=== PATIENT | male | born 2000 | race Caucasian/White ===

== ENCOUNTER → 2020-05-12 | Emergency (ER) | payer OTHER ==
[~2020-05-12] VITALS: Ht 182.9 cm; Wt 77.1 kg
--- NOTE | ~2020-05-12 | EMS ---
[facility] [address] [place] [address] EMS Patient Care Report Name: DULCE HAINES Room: PRE ER M.R.#: [id number] Admission: Attend Phys: Discharge: Date of : 00 Report #: [id number] THIS REPORT FOR: //name// Report Transmitted: 05/13/2020 00:15 EMS Care Summary [place] [employer] [facility] Incident [id number] @ 05/12/2020 23:05 Incident Location [address] [place], [place] [address] Patient DULCE HAINES Male, 20 Years 2000 Patient Address Patient History None Reported, Patient Allergies No known allergies, Patient Medications None Reported, Chief Complaint Altered mental status Disposition Transported No Lights/Evans Dispatch Reason Unconscious/Fainting Transported To [facility] Narrative Dispatched for 20y/o male unresponsive and turning blue. Upon arrival pt. was alert but unable to speak with "jerking" movements of all extremities. Pt. girlfriend states that pt. had been smoking marijuana and took a "huge hit" then pt. eyes "rolled back" and he fell out of the chair and extremities started convulsing. Girlfriend denies pt. doing any other drugs. Pt. mom was contacted and states pt. has no medical history (specifically seizures), no [facility] [address] [place] [address] EMS Patient Care Report Name: DULCE HAINES Room: PRE [facility].R.#: [id number] Admission: Attend Phys: Discharge: Date of : 00 Report #: [id number] allergies, and takes no meds.. During transport pt. was able to answer yes/no questions with head nods but remained unable to speak. VS were stable. Pt. was transported to [facility] for emergency services. Initial Vitals @23:30P: 130,R: 20,BP: 120/75,SpO2: 96, @23:45P: 130,R: 20,BP: 127/77,SpO2: 98, @23:15P: 130,R: 24,BP: 142/80,Pain: 0/10,GCS: 14,Temp: 97F,Glucose: 101,SpO2: 96,Revised Trauma: 12,FL Suspected: false Assessments @23:10MENTAL:Confused,SKIN:No Abnormalities,HEENT:Eyes: Left: Dilated,Eyes: Right Pupil: 5-mm,Eyes: Left Pupil: 5-mm,Eyes: Right: Dilated,Head/Face: No Abnormalities,Neck/Airway: No Abnormalities,LUNG SOUNDS:General: No Abnormalities,Left Upper: No Abnormalities,Right Upper: No Abnormalities,Left Lower: No Abnormalities,Right Lower: No Abnormalities,ABDOMEN:General: No Abnormalities,Left Upper: No Abnormalities,Right Upper: No Abnormalities,Left Lower: No Abnormalities,Right Lower: No Abnormalities,PELVIS//GI:No Abnormalities,EXTREMITIES:Left Arm: No Abnormalities,Right Arm: No Abnormalities,Left Leg: No Abnormalities,Right Leg: No Abnormalities,PULSE:Radial: 2+ Normal,NEURO: Impression Overdose - Unspecified Procedures @23:20Saline Lock 10cc (20 ga) Site: Antecubital-LeftResponse: UnchangedSucceeded Timeline 23:02,Call Received 23:05,Dispatched 23:05,En Route 23:08,Initial Responder On Scene 23:08,On Scene 23:10,At Patient 23:15,BP: 142/80 M,PULSE: 130,RR: 24 R,SPO2: 96 Ox,ETCO2: ,B,PAIN: 0,GCS: 14, 23:20,Saline Lock 10cc 20 ga Site: Antecubital-Left,Response: UnchangedSucceeded, 23:26,Depart Scene 23:30,BP: 120/75 M,PULSE: 130,RR: 20 R,SPO2: 96 Ox,ETCO2: ,BG: ,PAIN: ,GCS: , 23:45,BP: 127/77 M,PULSE: 130,RR: 20 R,SPO2: 98 Ox,ETCO2: ,BG: ,PAIN: ,GCS: , 23:46,At Destination 23:50,Transfer Patient 00:18,[place] [address] EMS Patient Care Report Name: DULCE HAINES Room: PRE [facility].R.#: [id number] Admission: Attend Phys: Discharge: Date of : 00 Report #: [id number] 00:18,In District Disclaimer v1.1 Copyright 2020 [employer] This EMS Care Summary contains data elements from the applicable legal record (which may be displayed differently). It is designed to provide pertinent information for the following purposes: continuity of care, clinical quality, and state data reporting. The complete legal record is available to ED staff and administrators of the receiving hospital in ES's Patient Tracker. All data is provided "as is."
[2020-05-13 01:11] LABS: ABSOLUTE LYMPHOCYTES 1.6 thou/uL (0.8-5.3); ABSOLUTE MONOCYTES 0.7 thou/uL (0.0-1.2); ABSOLUTE NEUTROPHILS 8.2 thou/uL (1.6-8.1); BASOPHILS 0.4 %; EOSINOPHILS 0.3 %; LYMPHOCYTES 15.3 %; MCH 30.9 pg (26.0-34.0); MCHC 36.3 g/dL (28.0-37.0); MCV 85.1 fL (80.0-100.0); MONOCYTES 6.9 %; MPV 11.1 fl. (7.2-11.1); NUCLEATED RBCS 0 /100WBC; PLATELET COUNT* 179 thou/uL (150-400); POLYS 77.1 %; RBC 5.17 mil/uL (4.50-6.00); RDW-CV 12.5 % (10.5-14.5); WBC 10.6 thou/uL (4.0-11.0)
[2020-05-13 01:25] LABS: URINE BILIRUBIN NEGATIVE (Negative); URINE BLOOD NEGATIVE (Negative); URINE CLARITY CLEAR; URINE COLOR YELLOW; URINE GLUCOSE-RANDOM NEGATIVE (Negative); URINE KETONES NEGATIVE (Negative); URINE LEUKOCYTES-REFLEX NEGATIVE (Negative); URINE NITRITE-REFLEX NEGATIVE (Negative); URINE PROTEIN NEGATIVE (Negative); URINE SPECIFIC GRAVITY 1.025 (1.005-1.030)
[2020-05-13 01:31] LABS: AMP/METHAMP Negative (Negative); BARBITURATES Negative (Negative); BENZODIAZEPINES Negative (Negative); COCAINE Negative (Negative); METHADONE Negative (Negative); OPIATES Negative (Negative); PCP Negative (Negative); THC POSITIVE (Negative)
[2020-05-13 01:36] LABS: CALCIUM 9.5 mg/dL (8.5-10.1); CREATININE 1.3 mg/dL (0.6-1.3); POTASSIUM 4.1 mmol/L (3.5-5.1)
[2020-05-13 01:40] LABS: MAGNESIUM 1.9 mg/dL (1.8-2.4); TOTAL BILIRUBIN 0.8 mg/dL (<0.1-1.0); TOTAL PROTEIN 7.9 g/dL (6.4-8.2)
[2020-05-13 01:52] VITALS: BP 120/72
--- NOTE | 2020-05-14 12:54 | EKG ---
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: : 2000 Requested By: Sandy Saleem Order Number: [id number] MD: Valdez Sequeira Measurements Intervals [place] Rate: 110 P: 51 [place]: 175 QRS: 80 QRSD: 88 T: -23 QT: 312 QTc: 423 Interpretive Statements Sinus tachycardia Borderline T abnormalities, inferior leads No previous ECG available for comparison Electronically Signed On 05-14-2020 12:54:04 CDT by Valdez Sequeira [email or web address] <ELECTRONICALLY SIGNED> By: Valdez Sequeira MD, [facility] 05/14/20 1254 0000 0000 Valdez Sequeira MD, FAC /EPI
== END ==
LOC: M.ERS 23:50
PROVIDERS: Emergency Medicine
DX: F12.90 Cannabis use, unspecified, uncomplicated (principal); R41.82 Altered mental status, unspecified